=== PATIENT | male | born 1990 | race American Indian/Alaskan Native ===

== ENCOUNTER 2018-07-17 20:51 | Emergency (ER) | payer SELFPAY ==
[2018-07-17 21:29] VITALS: BP 128/79
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
== END 2018-07-18 02:45 | disposition home or self-care (01) ==
LOC: ED 20:51
DX: M54.2 Cervicalgia (principal); R51 Headache; F17.200 Nicotine dependence, unspecified, uncomplicated; V87.7XXA Person injured in collision between other specified motor vehicles (traffic), initial encounter; Y93.89 Activity, other specified; Y92.488 Other paved roadways as the place of occurrence of the external cause; Y99.8 Other external cause status
CPT/HCPCS: 72040; 99283

== ENCOUNTER 2020-09-27 08:40 | Emergency (ER) | payer OTHER, SELFPAY ==
[2020-09-27] MEDS ORDERED: IBUPROFEN 600 MG TAB PO ONE (12:11)
[2020-09-27] MEDS ORDERED: DEXAMETHASONE 4 MG TAB PO ONE (12:11)
--- NOTE | 2020-09-27 12:11 | Emergency Department Report ---
- General Chief Complaint: Upper Respiratory Infection Stated Complaint: COVID SYMPTOMS Time Seen by Provider: 09/27/20 11:42 Source: patient Mode of arrival: Ambulatory Limitations: No Limitations - History of Present Illness Initial Comments: 30-year-old male presents to the ER today with complaints of flulike/Covid symptoms. He states that his symptoms started about 4 days ago. Patient complains of cough which has been sometimes productive and nonproductive as well as subjective fever, chills, generalized body aches and headache. He states that he did vomit once yesterday. He states that he is also been breaking out in sweats. He denies any chest pain, shortness of breath, abdominal pain, or wheezing. Denies any diarrhea or UTI symptoms. He denies any apparent ill contacts or known COVID-19 contacts. He has not gotten a COVID-19 test since he has been sick. He also has not gotten a COVID-19 vaccine. He admits to tobacco use and he states that once he was diagnosed with hypertension several years ago when he was in longterm but he states that he has not followed up with the primary care doctor to continue having it checked. He otherwise denies any other si gnificant past medical history. MD Complaint: fever, cough -: days(s) (4) - Related Data Previous Rx's Medication Instructions Recorded Last Taken Type Cyclobenzaprine [Flexeril] 10 mg PO QHS PRN #10 tablet 07/18/18 Unknown Rx Azithromycin [Zithromax Z-BILLY] 250 mg PO DAILY #1 pack 09/27/20 Unknown Rx Ibuprofen [Motrin 800 MG tab] 800 mg PO Q8HR PRN #14 tablet 09/27/20 Unknown Rx dexAMETHasone [Decadron] 4 mg PO DAILY #5 tablet 09/27/20 Unknown Rx Allergies Allergy/AdvReac Type Severity Reaction Status Date / Time No Known Allergies Allergy Verified 07/17/18 20:55 ED Review of Systems ROS: Stated complaint: COVID SYMPTOMS Other details as noted in HPI Comment: All other systems reviewed and negative Constitutional: chills, fever, malaise Eyes: denies: eye pain, eye discharge, vision change ENT: denies: ear pain, throat pain, dental pain, hearing loss, epistaxis, congestion Respiratory: cough. denies: shortness of breath, SOB with exertion, SOB at rest, wheezing Cardiovascular: denies: chest pain, palpitations, dyspnea on exertion, edema, syncope, paroxysmal nocturnal dyspnea Gastrointestinal: denies: abdominal pain, nausea, vomiting, diarrhea, constipation, hematemesis, hematochezia Genitourinary: denies: urgency, dysuria, frequency, hematuria, discharge, testicular pain, testicular mass Musculoskeletal: denies: back pain, joint swelling, arthralgia Skin: denies: rash, lesions, change in color, change in hair/nails, pruritus Neurological: headache. denies: numbness, paresthesias, confusion, abnormal gait, vertigo Psychiatric: denies: anxiety, depression, auditory hallucinations, visual hallucinations, homicidal thoughts, suicidal thoughts Hematological/Lymphatic: denies: easy bleeding, easy bruising, swollen glands ED Past Medical Hx - Past Medical History Previous Medical History?: Yes Hx Hypertension: Yes (no meds) - Surgical History Past Surgical History?: No - Social History Smoking Status: Current Every Day Smoker Substance Use Type: Alcohol - Medications Home Medications: Home Medications Medication Instructions Recorded Confirmed Last Taken Type Cyclobenzaprine [Flexeril] 10 mg PO QHS PRN #10 tablet 07/18/18 Unknown Rx Azithromycin [Zithromax Z-BILLY] 250 mg PO DAILY #1 pack 09/27/20 Unknown Rx Ibuprofen [Motrin 800 MG tab] 800 mg PO Q8HR PRN #14 tablet 09/27/20 Unknown Rx dexAMETHasone [Decadron] 4 mg PO DAILY #5 tablet 09/27/20 Unknown Rx ED Physical Exam - General Limitations: No Limitations General appearance: alert, in no apparent distress - Head Head exam: Present: atraumatic, normocephalic, normal inspection - Eye Eye exam: Present: normal appearance, PERRL, EOMI Pupils: Present: normal accommodation - ENT ENT exam: Present: normal exam, mucous membranes moist, TM's normal bilaterally - Neck Neck exam: Present: normal inspection, full ROM. Absent: meningismus - Respiratory Respiratory exam: Present: normal lung sounds bilaterally. Absent: respiratory distress, wheezes, rales, rhonchi, stridor - Cardiovascular Cardiovascular Exam: Present: regular rate, normal rhythm, normal heart sounds - GI/Abdominal GI/Abdominal exam: Present: soft. Absent: distended, tenderness, guarding, rebound - Neurological Exam Neurological exam: Present: alert, oriented X3, CN II-XII intact, normal gait - Psychiatric Psychiatric exam: Present: normal affect, normal mood - Skin Skin exam: Present: intact ED Course Vital Signs 09/27/20 09/27/20 09/27/20 08:45 13:39 13:40 Temperature 98.5 F 98.3 F Pulse Rate 96 H 86 Respiratory 18 18 Rate Blood Pressure 132/97 Blood Pressure 134/96 [Right] O2 Sat by Pulse 99 96 Oximetry ED Medical Decision Making - Radiology Data Radiology results: report reviewed Patient: BRANDIN ASHLEY MR#: [id number] : 1990 Acct:[id number] Age/Sex: 30 / M ADM Date: 09/27/20 Loc: ED Attending Dr: Ordering Physician: ELLEN ERAZO Date of Service: 09/27/20 Procedure(s): XR chest 1V ap Accession Number(s): [id number] cc: ELLEN ERAZO Fluoro Time In Minutes: CHEST 1 VIEW INDICATION: cough/flu/covid symptoms. COMPARISON: None. FINDINGS: Support devices: None. Heart: Normal. Lungs/Pleura: Mild right basilar opacities may be due to lower airways disease or early pneumonia. Left lung is clear. No pleural abnormality. IMPRESSION: 1. Probable lower airways disease/early pneumonia in the right lower lung. Signer Name: Dusty Toribio MD Signed: 09/27/2020 12:46 PM Workstation Name: [id number] Transcribed By: Dictated By: Dusty Toribio MD Electronically Authenticated By: Dusty Toribio MD Signed Date/Time: 09/27/20 1246 DD/ 1245 TD/TT: - Medical Decision Making Patient presented to the ER with flulike/Covid-like symptoms. His chest x-ray today shows Probable lower airways disease/early pneumonia in th e right lower lung. Patient currently resting in the room, is not in any acute pain or respiratory distress, he is not toxic or significantly ill. And he appears hydrated. His repeat vital signs were stable including that he was afebrile and not hypoxic. He also was ambulated in the ER and maintaining O2 sat on room air above 98% per fast-track nurse. Discussed x-ray results with patient. Informed him that is important that he gets in a Covid test when he leaves the ER at one the local urgent cares or pharmacies. His symptoms are concerning for Covid including the changes seen on the EKG. He will be discharged home with a prescription for Zithromax to cover for bacterial pneumonia. Encouraged him to drink lots of fluids. He will be given referral to local primary care doctor but he understands to return to the ER if symptoms changes or worsens in any way. - Differential Diagnosis Covid; community-acquired pneumonia; flu Critical care attestation.: If time is entered above; I have spent that time in minutes in the direct care of this critically ill patient, excluding procedure time. ED Disposition Clinical Impression: Viral upper respiratory illness, Suspected COVID-19 virus infection, Pneumonitis Disposition: - TO HOME OR SELFCARE Is pt being admited?: No Does the pt Need Aspirin: No Condition: Stable Instructions: COVID-19, Viral Respiratory Infection, Linu-Ac-Ipgi, Pneumonitis Additional Instructions: Take the decadron, the zpak and the Motrin as prescribed. You can take either Zyrtec, Claritin or Jumana and you can also take either Mucinex or Robitussin to help with your symptoms. Drink lots of fluids. Recommend that you take a multivitamin every day including zinc, vitamin C and vitamin D. It is important that you take a COVID-19 test when you leave here. You can get one done at one the pharmacy is a local urgent [facility]. I recommend that you quarantine until you get the results of her COVID-19 test. Follow-up closely with 1 the primary care doctor listed on discharge instructions. Return to the ER of at any point your symptoms worsens or changes in any way Prescriptions: dexAMETHasone [Decadron] 4 mg PO DAILY #5 tablet Ibuprofen [Motrin 800 MG tab] 800 mg PO Q8HR PRN #14 tablet PRN Reason: Pain, Moderate (4-6) Azithromycin [Zithromax Z-BILLY] 250 mg PO DAILY #1 pack Referrals: PRIMARY CARE, [Primary Care Provider] - 3-5 Days Time of Disposition: 13:53
--- NOTE | 2020-09-27 12:50 | XRay Report ---
CHEST 1 VIEW INDICATION: cough/flu/covid symptoms. COMPARISON: None. FINDINGS: Support devices: None. Heart: Normal. Lungs/Pleura: Mild right basilar opacities may be due to lower airways disease or early pneumonia. Le ft lung is clear. No pleural abnormality. IMPRESSION: 1. Probable lower airways disease/early pneumonia in the right lower lung. Signer Name: Dusty Toribio MD Signed: 09/27/2020 12:46 PM Workstation Name: [id number]
[2020-09-27 13:40] VITALS: BP 134/96
== END 2020-09-27 14:06 | disposition home or self-care (01) ==
LOC: ED 08:40
DX: J18.9 Pneumonia, unspecified organism (principal); B34.9 Viral infection, unspecified; Z03.818 Encounter for observation for suspected exposure to other biological agents ruled out; I10 Essential (primary) hypertension; F17.200 Nicotine dependence, unspecified, uncomplicated
CPT/HCPCS: 71045; 99283; J8540